=== PATIENT | male | born 1970 | race Two or more races ===

== ENCOUNTER → 2017-02-03 | Outpatient (CLI) | payer OTHER ==
--- NOTE | 2017-02-25 02:04 | ECWPNPC ---
PATIENT NAME: JAVIER PATRICK : 1970 GENDER: MALE VISIT DATE: 02/03/2017 DISCHARGE DATE: 02/03/17 1224 VISIT LOCKED DATE TIME: PHYSICIAN: TRISTON GILBERT RESOURCE: TRISTON GILBERT REASON FOR APPOINTMENT 1. BACK/NECK HISTORY OF PRESENT ILLNESS NEW PATIENT CONSULT: WHEN DID YOUR PAIN FIRST START? . BRIEFLY DESCRIBE HOW YOUR PAIN STARTED? . HOW DOES YOUR PAIN CHANGE WITH TIME? . DOES YOUR PAIN AWAKEN YOU FROM SLEEP? . HOW MANY HOURS OF SLEEP DO YOU NORMALLY GET? . ANY DIAGNOSTIC TESTING? . FACILITY WHERE TESTS WERE DONE? ____. PAIN TREATMENT TREATMENT YES CANCER HAVE YOU EVER HAD ANY TYPE OF CANCER?NO NO. PAIN SCREENING: PATIENT HAS A COMPLAINT OF ACUTE OR CHRONIC PAIN :YES FALL RISK SCREENING: SCREENING :NO FALLS IN THE PAST YEAR GAO INVENTORY: QUESTIONNAIRE ASSESSEDYES SCORE VALUE CALCULATED YES SCORE: 4/63 DENIES SUICIDAL OR HOMICIDAL IDEATION TODAY'S VISIT: NOTES: PT REFERRED BY DR ASH FOR FURTHER EVAL AND TREATMENT OF CHRONIC NECK AND LOW BACK PAIN. WAS HAVING PROBLEMS WITH PAIN AND NUMBNESS IN HIS ARMS. HAD MRI OF NECK AND HE IS WORKING ON GETTING A EMG DONE IN A FEW WEEKS AT [facility]. DURATION - X MANY YEARS WITH N/T AND PAIN IN NECK. WAS PREVIOUSLY SCHEDULED FOR CERVICAL SURGERY IN [place] BUT WAS NOT ABLE TO DO THIS. HAS BEEN TO PT BUT THIS CAUSED FALLING, ABLE TO DO TENS WHICH WAS HELPFUL. HAS HX OF VERTIGO WHICH LIMITS ABLE TO DO PT. HAS BEEN TOLD HE HAS BONE SPURS IN NECK. PAIN IS STABBING, IN BACK, FEELS IF NECK IS BEING PULLED OFF. HAS PERSISTANT NUMBNESS AND BURING IN BOTH HANDS AND FEET TO TOES. WAS SEEN IN - RATES PAIN LEVEL TODAY 9/10. DESCRIBES PAIN ACHING, BURNING, SHARP, STABBING, SORE AND WITH NUMBNESS NOTED ABOVE.. CURRENT MEDICATIONS TAKING GABAPENTIN 600 MG TABLET 1 TABLET ORALLY THREE TIMES A DAY TAKING MECLIZINE HCL 25 MG TABLET CHEWABLE 1 TABLET NEEDED ORALLY ONCE A DAY TAKING ZONISAMIDE 100 MG CAPSULE 1 CAPSULE ORALLY ONCE A DAY MEDICATION LIST REVIEWED AND RECONCILED WITH THE PATIENT PAST MEDICAL HISTORY HTN VERTIGO NECK AND BACK PAIN HEADACHES ALLERGIES N.K.D.A. SOCIAL HISTORY GENERAL: RECREATIONAL DRUG USE DRUG USE?YES MARIJUANA HOW OFTEN AND HOW MUCH? OCCASIONALLY CAFFEINE CAFFEINE USE?YES HOW OFTEN AND HOW MUCH? 1 CUP PER DAY OCCUPATION: NONE. DIET: CUT DOWN ON SODA AND SUGAR. EXERCISE: WALKS. MARITAL STATUS: LIVES WITH S/O. OTHERS AT HOME: CHILDREN AND S/O. YAZIDISM YAZIDISM NONE LANGUAGE LANGUAGES SPOKEN:AMHARIC EDUCATION LEVEL OF EDUCATION:FINISHED HIGH SCHOOL LEARNING BARRIERS / SPECIAL NEEDS BARRIERS TO LEARNING?NO HEARING IMPAIRED?NO VISION IMPAIRED?YES WEARS GLASSES :CORRECTIVE LENSES COGNITIVELY IMPAIRED?NO READINESS TO LEARN?NO LEARNING PREFERENCES?NO PAIN CLINIC PFS, CLERGY, PUBLIC HEALTH REFERRALS CLERGY REFERRAL NEEDED?NO WAS THE PROVIDER NOTIFIED OF ANY PERTINENT INFO?NO PFS REFERRAL NEEDED?NO PUBLIC HEALTH REFERRAL NEEDED?NO PATIENT: ____. REVIEW OF SYSTEMS CONSTITUTIONAL: ANY CHANGE IN YOUR MEDICAL CONDITION? NO . CHILLS NO . FEVER NO . INFECTION: DO YOU HAVE NEW INFECTIONS? NO . DO YOU HAVE HISTORY OF MRSA? NO . MUSCULOSKELETAL: ANY NEW PATTERNS OF PAIN OR NUMBNESS? NO . SYTEMIC LUPUS NO . GASTROENTEROLOGY: GENERAL HAS EPISODES OF DIARRHEA EVERY FEW WEEKS. HX DIVERTICULITIC. NO LOSS OF CONTROL . ANY NEW CHANGE IN BOWEL CONTROL? NO . BARRETTS ESOPHAGUS NO . CIRRHOSIS NO . HEPATITIS NO . LIVER FAILURE NO . ACID REFLUX YES . UNEXPLAINED WEIGHT LOSS NO . GENITOURINARY: ANY NEW CHANGE IN BLADDER CONTROL? NO . IS THERE A CHANCE YOU COULD BE ? NO . HEMATOLOGY/LYMPH: DO YOU TAKE ANY BLOOD THINNERS? (FOR EXAMPLE- COUMADIN, PLAVIX, AGGRENOX, PLATEL, PRADAXA, OR XARELTO) NO . WHEN WAS YOUR LAST DOSE? DATE: TIME: . LOW PLATELET COUNT NO . SICKLE CELL DISEASE NO . VON WILLIEBRANDS NO . FACTOR V LEIDEN NO . THALLASEMIA NO . ANEMIA NO . EASY BRUISING NO . NEUROLOGY: HAVE YOU FALLEN IN THE PAST 6 MONTHS? YES . ANY NEW EXTREMITY NUMBNESS OR WEAKNESS? NO . HEAD INJURY NO . DEMENTIA NO . CEREBRAL PALSY NO . MULTIPLE SCLEROSIS NO . DIZZINESS SENSATION OF IMBALANCE, SENSATION OF ROOM SPINNING, WHILE GETTING UP FROM SITTING POSITION, WITH MOVEMENT OF HEAD . HEADACHE NO . STROKES NO . VERTIGO NO . CARDIOLOGY: DO YOU HAVE A PACEMAKER OR DEFIBRILLATOR? NO . ANGINA NO . HEART ATTACK NO . HEART SURGERY NO . CONGESTIVE HEART FAILURE/FLUID OVERLOAD NO . CHEST PAIN NO . HIGH BLOOD PRESSURE ON MEDICATION(S) . IRREGULAR HEART BEAT NO . RESPIRATORY: HAVE YOU BEEN SICK IN THE PAST WEEK? NO . FEVER NO . FLU LIKE SYMPTOMS? NO . CPAP NO . BYPAP NO . ASTHMA NO . EMPHYSEMA NO . CHRONIC LUNG DISEASES NO . SHORTNESS OF BREATH ON EXERTION NO . DO YOU USE ANY TYPE OF TOBACCO (SMOKE, SMOKELESS, CHEW)? NO . GENERAL POST NASAL DRIP. MORNING COUGH . COUGH NO . SNORING YES . INTEGUMENTARY: DO YOU HAVE ANY RASHES OR OPEN SORES? NO . ALLERGIC/IMMUNO: ARE YOU ALLERGIC TO SHELLFISH OR IV DYE? NO . ANY NEW ALLERGIES? NO . PSYCHIATRIC: DO YOU HAVE THOUGHTS OF HURTING YOURSELF OR SOMEONE ELSE? NO . ARE YOU ABUSED, NEGLECTED, OR IN AN UNSAFE ENVIRONMENT? NO . ENDOCRINOLOGY: ARE YOU DIABETIC? NO . THYROID DISORDER NO . OTHER: DO YOU NEED ANY PRESCRIPTIONS? NO . IF YES, PLEASE LIST: ____ . ANY NEW PROBLEMS WITH YOUR MEDICATIONS? NO . WHEN DID YOU LAST EAT? ____ . WHEN DID YOU LAST DRINK? ____ . WHAT DID YOU LAST DRINK? ____ . NAME OF PERSON DRIVING YOU HOME? ____ . DO YOU HAVE ANY OTHER QUESTIONS OR CONCERNS NO . PSYCHOLOGY: DEPRESSION SITUATIONAL. WANTS SURGERY AND TO RETURN TO WORK . REVIEWED BY: PROVIDER: TRISTON PEARSON . VITAL SIGNS WT 317.6 LBS, HT 70 IN, BMI 45.57 INDEX, BP 149/94 MM HG, HR 74 /MIN, RR 18 /MIN, TEMP 97.4 F, OXYGEN SAT % 98%, NA INITIALS SC 11:12, REVIEWED BY: VD. EXAMINATION GENERAL EXAMINATION: PSYCHALERT , ORIENTED X 3 , APPROPRIATE MOOD AND AFFECT . HEENT:NORMOCEPHALIC, THICK NECK - UNABLE TO PALPATE THYROID. NO LYMPHADENOPATHY. LUNGS:CLEAR TO AUSCULTATION BILATERALLY, NO WHEEZES, RALES OR RHONCHI. HEART:NORMAL S1S2, NO MURMURS, CLICK OR RUBS, HEART RATE REGULAR, NO CAROTID BRUIT. MUSCULOSKELETAL:MUSCLE STRENGTH TESTING 5/5 BILATERAL UPPER AND LOWER EXTREMITIES. POINT TENDERNESS OVER CERVICAL SPINOUS PROCESSES AND ACROSS TRAPEZIUS MUSCLES BILATERALLY. PAIN WITH NECK ROTATION. , TRIGGER POINTS AND TIGHT FIBROUS NOTED ALONG SCAPULA BILATERALLY. TENDER WITH PALPATION OVER WRIST, ELBOW, KNEE AND ANKLE JOINTS: HEAD IN HEAD FORWARD PSOTITION. ABLE TO RISE TO UPRIGHT POSITION. GAIT SLOW, NONANTALGIC. EXTREMITIES:TRACE EDEMA, PULSES 2 PLUS BILATERALLY. NEUROLOGIC EXAM:PATCHY DYSESTHESIA WITH PALPATION OVER THE SHOULDERS AND UPPER ARMS. DTR'S 3 + BILATERAL UPPER AND LOWER EXTREMITIES. . DIAGNOSTIC TESTS REVIEWEDMRI OF CERVICAL SPINE COMPLETED ON 12/02/16. DEMOSTRATES MILD CERVICAL SPONDYLOSIS AT C4-5 AND C5-6. THERE IS DISC OSTEOPHYTE FORMATION AT BOTH LEVELS AND AT C5-6 THERE IS SOME VERY SUBTLE VENTRAL EFFACEMENT ON THE RIGHT IT CROSSES THE DISC SPACE. 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 NO EXTRINSIC NERVE ROOT COMPRESSION. NO PARS DEFECT. NO DISC HERNIATION IS SEEN.. ASSESSMENTS OTHER CERVICAL DISC DISPLACEMENT AT C5-C6 LEVEL - M50.222 (PRIMARY) CERVICALGIA - M54.2 DEGENERATIVE DISC DISEASE, CERVICAL - M50.30 TREATMENT OTHER CERVICAL DISC DISPLACEMENT AT C5-C6 LEVEL CERVICAL EPIDURAL RIGHT NOTES: WILL REQUEST AUTH FOR CERVICAL EPIDURAL INJECTION. HAS ATTEMPTED PHYSICAL THERAPY AND HAS FAILED CONSERVATIVE MEDICATION OPTIONS INCLUDONG MEDICATIONS FOR NERVE PAIN AND NSAIDS. PATIENT IS TO OBTAIN CURRENTLY ORDERED MEDS FROM PRIMARY PROVIDER AND DR ASH,CERVICAL EPIDURAL INJECTION: YOUR EXPERIENCE MATERIAL WAS PRINTED. PROCEDURE CODES FA211 ESTABILISHED PATIENT [facility] FAC[facility] CHARGE DISPOSITION & COMMUNICATION FOLLOW UP AFTER INJECTION (REASON: CHECK AUTH FOR CERVICAL EPIDURAL) ELECTRONICALLY SIGNED BY OSORIO HAMMER ON 02/24/2017 AT 02:03 PM EDT DISCLAIMER : THIS IS A VISIT SUMMARY EXTRACTED FROM THE [employer] CHART. IT IS NOT A COPY OF THE [employer] PROGRESS NOTE. POLO
== END | disposition home or self-care (01) ==
LOC: M PAIN 11:20
PROVIDERS: ATTEND Nurse Practitioner Family
DX: G89.29 Other chronic pain (principal); M50.222 Other cervical disc displacement at C5-C6 level; M50.30 Other cervical disc degeneration, unspecified cervical region; I10 Essential (primary) hypertension; R51 Headache; Z86.69 Personal history of other diseases of the nervous system and sense organs; Z79.899 Other long term (current) drug therapy; F12.20 Cannabis dependence, uncomplicated

== ENCOUNTER → 2017-03-10 | Outpatient (CLI) | payer OTHER ==
[~2017-03-10] MED LIST: ISOVUE-M 300 61% 15ML VIAL (Q9967) As Ordered ONE; LIDOCAINE 1% SDV INJ 30 ML VIAL As Ordered ONE; diazePAM 5 MG TAB As Ordered ONE; methylPREDNISolone SUSP 40 MG/ML (DEPO-medrol) VIAL (J1030) As Ordered ONE
--- NOTE | 2017-03-10 14:04 | REP ---
PARTIAL CERVICAL SPINE SERIES: Single view. HISTORY: Cervical epidural for pain. 13 seconds of fluoroscopy time is reported. FINDINGS: A single fluoroscopically obtained last image hold spot radiographs of the cervicothoracic junction documents needle position and contrast injection associated with cervical epidural injection procedure. Signed by Osman Pagan MD 03/10/2017 04:44 P
--- NOTE | 2017-03-16 23:35 | ECWPNPC ---
PATIENT NAME: JAVIER PATRICK : 1970 GENDER: MALE VISIT DATE: 03/10/2017 DISCHARGE DATE: 03/10/17 1240 VISIT LOCKED DATE TIME: PHYSICIAN: KONG BLUM RESOURCE: KONG BLUM REASON FOR APPOINTMENT 1. CE HISTORY OF PRESENT ILLNESS HISTORY OF PRESENT ILLNESS: PAIN THE PATIENT DESCRIBES THE PAIN... FALL RISK SCREENING: SCREENING :NO FALLS IN THE PAST YEAR CURRENT MEDICATIONS TAKING GABAPENTIN 600 MG TABLET 1 TABLET ORALLY THREE TIMES A DAY, NOTES: 03/09/17 170 TAKING MECLIZINE HCL 25 MG TABLET CHEWABLE 1 TABLET NEEDED ORALLY ONCE A DAY, NOTES: 03/09/17 170 TAKING ZONISAMIDE 100 MG CAPSULE 1 CAPSULE ORALLY ONCE A DAY, NOTES: 03/08/17 170 TAKING LISINOPRIL 5 MG TABLET 2 TABLETS ORALLY ONCE A DAY, NOTES: 03/09/17 2100 MEDICATION LIST REVIEWED AND RECONCILED WITH THE PATIENT PAST MEDICAL HISTORY HTN VERTIGO NECK AND BACK PAIN HEADACHES ALLERGIES N.K.D.A. REVIEW OF SYSTEMS CONSTITUTIONAL: ANY CHANGE IN YOUR MEDICAL CONDITION? NO . CHILLS NO . FEVER NO . INFECTION: DO YOU HAVE NEW INFECTIONS? NO . DO YOU HAVE HISTORY OF MRSA? NO . MUSCULOSKELETAL: ANY NEW PATTERNS OF PAIN OR NUMBNESS? NO . GASTROENTEROLOGY: ANY NEW CHANGE IN BOWEL CONTROL? NO . GENITOURINARY: ANY NEW CHANGE IN BLADDER CONTROL? NO . IS THERE A CHANCE YOU COULD BE ? NO . HEMATOLOGY/LYMPH: DO YOU TAKE ANY BLOOD THINNERS? (FOR EXAMPLE- COUMADIN, PLAVIX, AGGRENOX, PLATEL, PRADAXA, OR XARELTO) NO . WHEN WAS YOUR LAST DOSE? DATE: TIME: . NEUROLOGY: HAVE YOU FALLEN IN THE PAST 6 MONTHS? NO . ANY NEW EXTREMITY NUMBNESS OR WEAKNESS? NO . CARDIOLOGY: DO YOU HAVE A PACEMAKER OR DEFIBRILLATOR? NO . RESPIRATORY: HAVE YOU BEEN SICK IN THE PAST WEEK? NO . FEVER NO . FLU LIKE SYMPTOMS? NO . COUGH NO . INTEGUMENTARY: DO YOU HAVE ANY RASHES OR OPEN SORES? NO . ALLERGIC/IMMUNO: ARE YOU ALLERGIC TO SHELLFISH OR IV DYE? NO . ANY NEW ALLERGIES? NO . PSYCHIATRIC: DO YOU HAVE THOUGHTS OF HURTING YOURSELF OR SOMEONE ELSE? NO . ARE YOU ABUSED, NEGLECTED, OR IN AN UNSAFE ENVIRONMENT? NO . ENDOCRINOLOGY: ARE YOU DIABETIC? NO . OTHER: DO YOU NEED ANY PRESCRIPTIONS? NO . IF YES, PLEASE LIST: ____ . ANY NEW PROBLEMS WITH YOUR MEDICATIONS? NO . WHEN DID YOU LAST EAT? 03-09-17 2200 . WHEN DID YOU LAST DRINK? 03-10-17 0700 . WHAT DID YOU LAST DRINK? WATER . NAME OF PERSON DRIVING YOU HOME? CARA PRITCHETT . DO YOU HAVE ANY OTHER QUESTIONS OR CONCERNS NO . REVIEWED BY: PROVIDER: . VITAL SIGNS WT 312.8 LBS, HT 70 IN, BMI 44.88 INDEX, BP 129/80 MM HG, HR 67 /MIN, RR 16 /MIN, TEMP 97.2 F, OXYGEN SAT % 97%, NA INITIALS SC 10:12. ASSESSMENTS CERVICAL DISC DISORDER WITH RADICULOPATHY, CERVICOTHORACIC REGION - M50.13 (PRIMARY) PROCEDURES PN CERVICAL EPIDURAL PRE PROCEDURE DIAGNOSIS CERVICAL DISC DISORDER WITH RADICULOPATHY , CERVICAL RADICULOPATHY POST PROCEDURE DIAGNOSIS CERVICAL DISC DISORDER WITH RADICULOPATHY , CERVICAL RADICULOPATHY PROCEDURE CERVICAL EPIDURAL STEROID INJECTION UNDER FLUOROSCOPIC GUIDANCE SURGEON DR. KONG BLUM PIN GAME MACHINE INSPECTOR NONE ANESTHESIA LOCAL PRE PROCEDURE NOTE THE PATIENT HAS A HISTORY OF CHRONIC CERVICAL PAIN. I EVALUATE THE PATIENT AND REVIEWED THE CHART. I WENT OVER THE RISKS, ALTERNATIVES, AND BENEFITS ASSOCIATED WITH THIS PROCEDURE. THE PATIENT WOULD LIKE TO PROCEED AND GIVE CONSENT TO PERFORMED THE PROCEDURE. THE PATIENT DENIES UNEXPLAINABLE WEIGHT LOSS, FEVER, CHILLS, OR NEW CHANGES IN URINARY OR BOWEL CONTROL DESCRIPTION OF PROCEDURE THE PATIENT WAS BROUGHT TO THE PROCEDURE ROOM AND PLACED IN THE PRONE POSITION. THE CERVICOTHORACIC AREA WAS CLEANED WITH BETADINE SOLUTION AND DRAPED ASEPTICALLY. THE PROCEDURE WAS DONE UNDER STERILE CONDITIONS. I CHECKED LATERALITY AND THE LEVEL WHERE THE PROCEDURE WAS GOING TO BE PERFORMED WITH THE PATIENT AND THE SUPPORTING STAFF AT THE MOMENT OF THE TIME OUT IN THE PROCEDURE ROOM. UNDER FLUOROSCOPIC GUIDANCE, THE TARGET WAS SELECTED AT THE INTERLAMINAR LEVEL OF C7-T1. LIDOCAINE WAS USED TO NUMB THE SKIN AND THE SUBCUTANEOUS TISSUE BELOW IT. EPIDURAL TUOHY NEEDLE 17-GAUGE WAS ADVANCED UNDER FLUOROSCOPIC GUIDANCE AND FOLLOWING PATIENT FEEDBACK UNTIL THE EPIDURAL SPACE WAS REACHED 6 CM DEEP INTO THE SKIN BY THE LOSS OF RESISTANCE TECHNIQUE. ISOVUE M DYE 30%, 0.25 ML, WAS INJECTED SHOWING ADEQUATE SPREAD OF THE DYE. THEN, A SOLUTION OF 3 ML OF NORMAL SALINE WITH DEPO-MEDROL 60 MG WAS INJECTED SLOWLY FOLLOWING PATIENT FEEDBACK. THERE WAS NO EVIDENCE OF BLOOD, PARESTHESIA OR CEREBROSPINAL FLUID DURING THE PROCEDURE. THE PATIENT WAS SENT TO THE RECOVERY ROOM. THE PATIENT WAS MOVING THE EXTREMITIES AND DOING WELL. THERE WAS NO COMPLICATION DURING THE PROCEDURE. FLUOROSCOPY TIME WAS 13 SECONDS POST PROCEDURE NOTE THE PATIENT WILL BE SEEN IN A FOLLOW UP IN THE NEXT FEW WEEKS. INSTRUCTIONS WERE GIVEN, QUESTIONS WERE ANSWERED, AND THE PATIENT EXPRESSED UNDERSTANDING AND AGREES WITH THE PLAN. I, MADELINE ARREOLA, DOCUMENTED THE ABOVE INFORMATION ACTING A SCRIBE FOR DR. BLUM. I HAVE REVIEWED THE ABOVE DOCUMENT, WRITTEN BY MADELINE ARREOLA SCRIBE AND I VERIFY THAT IT IS [facility]NO[facility] FLUORO GUIDE SPINE INJECTION (PAIN)[id number] PROCEDURE CODES 99629 CERVICAL/THORACIC W/ IMAGING 6045F RADXPS IN END [id number] PXD DISPOSITION & COMMUNICATION FOLLOW UP 3 WEEKS ELECTRONICALLY SIGNED BY KONG BLUM MD ON 03/16/2017 AT 07:37 PM EDT DISCLAIMER : THIS IS A VISIT SUMMARY EXTRACTED FROM THE [employer] CHART. IT IS NOT A COPY OF THE [employer] PROGRESS NOTE. MTDD
== END ==
LOC: M PAIN 10:20
PROVIDERS: ATTEND Anesthesiology
DX: G89.29 Other chronic pain (principal); M50.13 Cervical disc disorder with radiculopathy, cervicothoracic region; I10 Essential (primary) hypertension; R42 Dizziness and giddiness; R51 Headache; Z79.899 Other long term (current) drug therapy

== ENCOUNTER → 2017-03-24 | Outpatient (CLI) | payer OTHER ==
--- NOTE | 2017-04-10 01:36 | ECWPNPC ---
PATIENT NAME: JAVIER PATRICK : 1970 GENDER: MALE VISIT DATE: 03/24/2017 DISCHARGE DATE: 03/24/17 1150 VISIT LOCKED DATE TIME: PHYSICIAN: TRISTON GILBERT RESOURCE: TRISTON GILBERT HISTORY OF PRESENT ILLNESS HISTORY OF PRESENT ILLNESS: PAIN THE PATIENT DESCRIBES THE PAIN... FALL RISK SCREENING: SCREENING :NO FALLS IN THE PAST YEAR TODAY'S VISIT: NOTES: S/P CESB COMPLETED ON 03/10/17. NOTES PAIN DECREASED BU ABOUT 40% IN NECK AND UPPER BACK AREA AFTER INJECTION FOR 3 DAYS. RATES PAIN TODAY 9/10. DESCRIBES PAIN CONSTANT, ACHING, BURNING THROBBING AND SORE. HAD IMPROVEMENT IN KNIFE FEELINGIN BACK BUT THEN USED SAW TO CUT KINDLING AND PAIN RESARTED HAS NEW ONSET LARGE BOIL UNDER LEFT AXILLA - HAS SOME DRAINAGE BUT THE SIZE OF BOIL INCREASED DRAMATICCALLY.. CURRENT MEDICATIONS TAKING GABAPENTIN 600 MG TABLET 1 TABLET ORALLY THREE TIMES A DAY TAKING MECLIZINE HCL 25 MG TABLET CHEWABLE 1 TABLET NEEDED ORALLY ONCE A DAY TAKING ZONISAMIDE 100 MG CAPSULE 1 CAPSULE ORALLY ONCE A DAY TAKING LISINOPRIL 5 MG TABLET 2 TABLETS ORALLY ONCE A DAY TAKING METHOCARBAMOL 750 MG TABLET 1 TABLET ORALLY EVERY 4 HRS MEDICATION LIST REVIEWED AND RECONCILED WITH THE PATIENT PAST MEDICAL HISTORY HTN VERTIGO NECK AND BACK PAIN HEADACHES ALLERGIES N.K.D.A. REVIEW OF SYSTEMS REVIEWED BY: PROVIDER: TRISTON GILBERT PATROL COMMUNITY SERVICE OFFICER . CONSTITUTIONAL: ANY CHANGE IN YOUR MEDICAL CONDITION? NO . CHILLS NO . FEVER NO . INFECTION: DO YOU HAVE NEW INFECTIONS? NO . DO YOU HAVE HISTORY OF MRSA? NO . MUSCULOSKELETAL: ANY NEW PATTERNS OF PAIN OR NUMBNESS? NO . GASTROENTEROLOGY: ANY NEW CHANGE IN BOWEL CONTROL? NO . GENITOURINARY: ANY NEW CHANGE IN BLADDER CONTROL? NO . IS THERE A CHANCE YOU COULD BE ? NO . HEMATOLOGY/LYMPH: DO YOU TAKE ANY BLOOD THINNERS? (FOR EXAMPLE- COUMADIN, PLAVIX, AGGRENOX, PLATEL, PRADAXA, OR XARELTO) NO . WHEN WAS YOUR LAST DOSE? DATE: TIME: . NEUROLOGY: HAVE YOU FALLEN IN THE PAST 6 MONTHS? NO . ANY NEW EXTREMITY NUMBNESS OR WEAKNESS? NO . CARDIOLOGY: DO YOU HAVE A PACEMAKER OR DEFIBRILLATOR? NO . RESPIRATORY: HAVE YOU BEEN SICK IN THE PAST WEEK? NO . FEVER NO . FLU LIKE SYMPTOMS? NO . COUGH NO . INTEGUMENTARY: DO YOU HAVE ANY RASHES OR OPEN SORES? YES - DEVELOPED LARGE DARING BOIL RIGHT AXILLA AFTER INJECTION . ALLERGIC/IMMUNO: ARE YOU ALLERGIC TO SHELLFISH OR IV DYE? NO . ANY NEW ALLERGIES? NO . PSYCHIATRIC: DO YOU HAVE THOUGHTS OF HURTING YOURSELF OR SOMEONE ELSE? NO . ARE YOU ABUSED, NEGLECTED, OR IN AN UNSAFE ENVIRONMENT? NO . ENDOCRINOLOGY: ARE YOU DIABETIC? NO . OTHER: DO YOU NEED ANY PRESCRIPTIONS? NO . IF YES, PLEASE LIST: ____ . ANY NEW PROBLEMS WITH YOUR MEDICATIONS? NO . WHEN DID YOU LAST EAT? ____ . WHEN DID YOU LAST DRINK? ____ . WHAT DID YOU LAST DRINK? ____ . NAME OF PERSON DRIVING YOU HOME? ____ . DO YOU HAVE ANY OTHER QUESTIONS OR CONCERNS NO . VITAL SIGNS WT 311.6 LBS, HT 70 IN, BMI 44.71 INDEX, BP 140/82 MM HG, HR 82 /MIN, RR 18 /MIN, TEMP 97.1 F, OXYGEN SAT % 99%, NA INITIALS SC 11:18. EXAMINATION GENERAL EXAMINATION: PSYCHALERT , ORIENTED X 3 , APPROPRIATE MOOD AND AFFECT . HEENT: THICK NECK - UNABLE TO PALPATE THYROID. NO LYMPHADENOPATHY. LUNGS:CLEAR TO AUSCULTATION BILATERALLY, NO WHEEZES, RALES OR RHONCHI. HEART:NORMAL S1S2, NO MURMURS, CLICK OR RUBS, HEART RATE REGULAR, NO CAROTID BRUIT. MUSCULOSKELETAL:MUSCLE STRENGTH TESTING 5/5 BILATERAL UPPER AND LOWER EXTREMITIES. MOLD TENDERNESS OVER CERVICAL SPINOUS PROCESSES AND ACROSS TRAPEZIUS MUSCLES BILATERALLY. NO PAIN WITH NECK ROTATION. , HEAD IN UPRIGHT. ABLE TO RISE TO UPRIGHT POSITION. GAIT SLOW, NONANTALGIC. EXTREMITIES:TRACE EDEMA BILATERAL LOWER EXTREMITIES. SKIN:6 CM RAISED , TENDER REDDENED AREA UNDER RIGHT XAILLA. NO DRAINAGE, NOT EXUDATE. ASSESSMENTS OTHER CERVICAL DISC DISPLACEMENT AT C5-C6 LEVEL - M50.222 (PRIMARY) CERVICALGIA - M54.2 DEGENERATIVE DISC DISEASE, CERVICAL - M50.30 TREATMENT OTHER CERVICAL DISC DISPLACEMENT AT C5-C6 LEVEL START TRAMADOL HCL TABLET, 50 MG, 1 TABLET NEEDED, ORALLY, EVERY 8 HRS PRN PAIN MDD=3, 30 DAY(S), 90, REFILLS 0 NOTES: GO TO PRIMARY DOC OR ER ABOUT BOIL UNDER LEFT ARM. PROCEDURE CODES FA211 ESTABILISHED PATIENT [facility] FACILITY CHARGE DISPOSITION & COMMUNICATION FOLLOW UP 1 MONTH (REASON: NECK / BACK PAIN) ELECTRONICALLY SIGNED BY OSORIO HAMMER ON 04/09/2017 AT 08:45 AM EDT DISCLAIMER : THIS IS A VISIT SUMMARY EXTRACTED FROM THE [employer] CHART. IT IS NOT A COPY OF THE [employer] PROGRESS NOTE. ELMERD
== END ==
LOC: M PAIN 10:40
PROVIDERS: ATTEND Nurse Practitioner Family
DX: M50.222 Other cervical disc displacement at C5-C6 level (principal); M50.30 Other cervical disc degeneration, unspecified cervical region; G89.29 Other chronic pain; I10 Essential (primary) hypertension; R42 Dizziness and giddiness; R51 Headache; Z79.899 Other long term (current) drug therapy